=== PATIENT | male | born 1940 | race African-American/Black ===

== ENCOUNTER 2022-03-10 21:59 | Emergency (ER) | payer MEDICARE, MEDICAID ==
[~2022-03-10] VITALS: Ht 172.7 cm; Wt 80.0 kg
[~2022-03-10 21:59] MED LIST: BENA-8 PO; INS7030 SUBCUT; LEVO25TA7 PO; METF-416 PO
[2022-03-10] MEDS ORDERED: HYDROCODONE/ACETAMINOPHEN 10/325MG TABLET PO ONE (23:30)
[2022-03-10] MEDS ORDERED: HYDROCODONE/ACETAMINOPHEN 10/325MG TABLET PO NR (23:45)
[2022-03-11] MEDS ORDERED: KETAMINE HCL 50 MG/ML 10ML IV ONE (01:00)
[2022-03-11] MEDS ORDERED: PROPOFOL 200MG/20ML VIAL IV ONE (01:00)
[2022-03-11 02:36] VITALS: BP 137/86
[2022-03-11] MEDS ORDERED: IBUP-2029 MT (02:42)
== END 2022-03-11 07:06 | disposition home or self-care (01) ==
LOC: ER 22:24
DX: S53.105A Unspecified dislocation of left ulnohumeral joint, initial encounter (principal); W18.39XA Other fall on same level, initial encounter; Y93.89 Activity, other specified; Y92.89 Other specified places as the place of occurrence of the external cause; Y99.8 Other external cause status; E11.9 Type 2 diabetes mellitus without complications; I10 Essential (primary) hypertension; E03.9 Hypothyroidism, unspecified; Z79.899 Other long term (current) drug therapy
CPT/HCPCS: 73060; 73070; 73080; 99152; 99285; J2704; J3490

== ENCOUNTER 2023-11-26 03:35 | Emergency (ER) | payer MEDICARE, MEDICAID ==
[~2023-11-26] VITALS: Ht 172.7 cm; Wt 92.0 kg
[~2023-11-26 03:35] MED LIST changes: +IBUP-2029 MT
[2023-11-26 03:39] VITALS: O2SAT 97
[2023-11-26] MEDS: FLUORESCEIN SODIUM 1MG/STRIP RIGHTEYE ONE (10:00)
[2023-11-26] MEDS: TETRACAINE 0.5% OPHTH DROPS 4ML RIGHTEYE ONE (10:00)
[2023-11-26 16:04] VITALS: BP 150/79; PULSE 84; RESP 18; TEMP 36.78072; O2SAT 96
== END 2023-11-26 16:14 | disposition short-term general hospital (02) ==
LOC: ER 03:35
DX: H44.819 Hemophthalmos, unspecified eye (principal); I10 Essential (primary) hypertension; E11.9 Type 2 diabetes mellitus without complications; Z86.39 Personal history of other endocrine, nutritional and metabolic disease
CPT/HCPCS: 70480; 93005; 99285